=== PATIENT | male | born 1945 | race Caucasian/White ===

== ENCOUNTER 2020-02-12 11:05 | Emergency (ER) | payer MEDICARE, OTHER ==
[2020-02-12 11:28] VITALS: BP 152/86; PULSE 99
[2020-02-12 12:27] LABS: CHLORIDE,CL 99 mEq/L (98-106); SODIUM,NA 137 mEq/L (136-145)
--- NOTE | 2020-02-12 12:58 | EDM.PDOC ---
ED HPI GENERAL MEDICAL PROBLEM - General Chief Complaint: Syncope Stated Complaint: dizzy Time Seen by Provider: 02/12/20 11:25 Source of Information: Reports: Patient History Limitations: Reports: No Limitations - History of Present Illness INITIAL COMMENTS - FREE TEXT/NARRATIVE: Franklin is a 74 year old male who presents to ER with complaints of feeling lightheaded off an on since Sunday. Admits that Sunday evening, had a few alcoholic beverages and "a high sodium meal" and awoke on Sunday feeling lightheaded. Thought possibly related to high sodium intake so has been wa tching his salt intake. This am, came over to see his mom at [employer] and felt lightheaded when getting in his car and getting up from seeing her. He feels fine when at rest and with lying down. He has been monitoring his blood pressure as of late, systolic has been between 106-150. Had a visit with Dr. Holley a month ago, states tests were all stable at that time. Does have a history of diabetes. Does not check his blood sugars at home. Last A1c was 6.1 in October. Onset: Today Duration: Minutes:, Intermittent Location: Reports: Head Severity: Mild Improves with: Reports: Rest Worsens with: Reports: Movement Associated Symptoms: Denies: Confusion, Chest Pain, Cough, Fever/Chills, Loss of Appetite, Malaise, Nausea/Vomiting, Shortness of Breath, Weakness - Related Data Allergies Allergy/AdvReac Type Severity Reaction Status Date / Time No Known Allergies Allergy Verified 02/12/20 11:28 Home Meds: Home Meds Flaxseed/Omega3,6,9/Fatty Acid [Flax Seed Oil 1,300 mg Softgel] 1 cap PO DAILY 05/04/15 [History] Losartan/Hydrochlorothiazide [Losartan-HCTZ 100-25 MG] 1 tab PO DAILY 05/04/15 [History] Potassium Chloride [Klor-Con 10] 1 tab PO DAILY 05/04/15 [History] amLODIPine [Norvasc] 10 mg PO BEDTIME 02/12/20 [History] Past Medical History Cardiovascular History: Reports: Hypertension Endocrine/Metabolic History: Reports: Diabetes, Type II Social & Family History - Tobacco Use Tobacco Use Status *Q: Never Tobacco User - Caffeine Use Caffeine Use: Reports: None - Recreational Drug Use Recreational Drug Use: No ED ROS GENERAL - Review of Systems Review Of Systems: See Below Constitutional: Reports: Malaise, Weakness. Denies: Fever, Chills, Fatigue, Decreased Appetite HEENT: Denies: Ear Pain, Rhinitis, Sinus Problem, Throat Pain, Vertigo Respiratory: Denies: Shortness of Breath, Cough Cardiovascular: Reports: Lightheadedness. Denies: Chest Pain, Edema Endocrine: Reports: Fatigue GI/Abdominal: Denies: Abdominal Pain, Constipation, Diarrhea, Nausea, Vomiting : Reports: No Symptoms Musculoskeletal: Reports: No Symptoms Skin: Reports: No Symptoms Neurological: Reports: Syncope, Weakness ED EXAM, DIZZINESS - Physical Exam Exam: See Below Exam Limited By: No Limitations General Appearance: Alert, WD/WN, No Apparent Distress Eye Exam: Bilateral Eye: EOMI, PERRL Ears: Normal External Exam, Normal TMs Nose: Normal Inspection, Normal Mucosa, No Blood Throat/Mouth: Normal Inspection, Normal Oropharynx Head Exam: Normocephalic Vertigo: No: reproducible Neck: Normal Inspection, Supple, Non-Tender, Full Range of Motion Respiratory/Chest: No Respiratory Distress, Lungs Clear, Normal Breath Sounds Cardiovascular: Regular Rate, Rhythm GI/Abdominal: Normal Bowel Sounds, Soft, Non-Tender Neurological: Alert, Normal Mood/Affect, CN II-XII Intact, Oriented x 3 Extremities: Normal Inspection, No Pedal Edema Skin Exam: Warm, Dry Course - Vital Signs Last Recorded V/S: Last Vital Signs Temp 97.8 F 02/12/20 11:26 Pulse 99 02/12/20 11:26 Resp 18 02/12/20 11:26 BP 152/86 H 02/12/20 11:26 Pulse Ox 99 02/12/20 11:26 - Orders/Labs/Meds Orders: Active Orders 24 hr Category Date Time Status Chest 2V [CR] Stat Exams 02/12/20 12:03 Taken Head wo Cont [CT] Stat Exams 02/12/20 12:03 Taken Sodium Chloride 0.45% 1,000 ml Med 02/12/20 13:00 Active IV ASDIRECTED Medication Orders Sodium Chloride (Sodium Chloride 0.45%) 1,000 mls @ 250 mls/hr IV ASDIRECTED ROBBIE Last Admin: 02/12/20 13:08 Dose: 250 mls/hr Documented by: KELLY Labs: Laboratory Tests 02/12/20 02/12/2020 Range/Units 11:06 12:10 12:10 WBC 14.6 H (5.0-10.0) 10^3/uL RBC 5.18 (4.50-6.00) 10^6/uL Hgb 15.8 (14.0-18.0) g/dL Hct 47.0 (40.0-54.0) % MCV 90.7 (82.0-94.0) fL MCH 30.5 (27.0-32.0) pg MCHC 33.6 (33.0-38.0) g/dL RDW Coeff of Angelique 13.3 (11.0-15.0) % Plt Count 319 (150-400) 10^3/uL Add Manual Diff Yes Neutrophils % (Manual) 40 (35-85) % Band Neutrophils % 2 (0-5) % Lymphocytes % (Manual) 42 (21-55) % Monocytes % (Manual) 9 (2-12) % Absolute Neutrophils 6.13 (1.80-7.00) 10^3/uL Lymphocytes # (Manual) 7.15 H (1.00-4.80) 10^3/uL Monocytes # (Manual) 1.31 H (0.00-0.80) 10^3/uL D-Dimer, Quantitative (0.00-0.50) Sodium 137 (136-145) mEq/L Potassium 3.8 (3.5-5.0) mEq/L Chloride 99 (98-106) mEq/L Carbon Dioxide 32 (21-32) mmol/L BUN 20 H (7-18) mg/dL Creatinine 1.6 H (0.7-1.3) mg/dL Est Cr Clr Drug Dosing 38.00 mL/min Estimated GFR (MDRD) 42 L (>=60) mL/min Glucose 225 H (75-99) mg/dL Calcium 9.6 (8.4-10.1) mg/dL Total Bilirubin 1.2 H (0.0-1.0) mg/dL AST 48 H (15-37) U/L ALT 59 (12-78) U/L Alkaline Phosphatase 78 (46-116) U/L Troponin I < 0.017 (0.00-0.06) ng/mL C-Reactive Protein 0.2 (0.2-0.8) mg/dL NT-Pro-B Natriuret Pep 50 (0-1000) pg/mL Total Protein 7.4 (6.4-8.2) g/dL Albumin 4.0 (3.4-5.0) g/dL Urine Color (YELLOW) Urine Appearance (CLEAR) Urine pH (4.5-8.0) Ur Specific [place] (1.003-1.020) Urine Protein (NEGATIVE) mg/dL Urine Glucose (UA) (NEGATIVE) mg/dL Urine Ketones (NEGATIVE) mg/dL Urine Occult Blood (NEGATIVE) Urine Nitrite (NEGATIVE) Urine Bilirubin (NEGATIVE) Urine Urobilinogen (0.2-1.0) EU/dL Ur Leukocyte Esterase (NEGATIVE) SARS CoV-2 RNA Rapid MARCIO Negative (NEGATIVE) 02/12/20 02/12/20 Range/Units 12:10 12:10 WBC (5.0-10.0) 10^3/uL RBC (4.50-6.00) 10^6/uL Hgb (14.0-18.0) g/dL Hct (40.0-54.0) % MCV (82.0-94.0) fL MCH (27.0-32.0) pg MCHC (33.0-38.0) g/dL RDW Coeff of Angelique (11.0-15.0) % Plt Count (150-400) 10^3/uL Add Manual Diff Neutrophils % (Manual) (35-85) % Band Neutrophils % (0-5) % Lymphocytes % (Manual) (21-55) % Monocytes % (Manual) (2-12) % Absolute Neutrophils (1.80-7.00) 10^3/uL Lymphocytes # (Manual) (1.00-4.80) 10^3/uL Monocytes # (Manual) (0.00-0.80) 10^3/uL D-Dimer, Quantitative 0.19 (0.00-0.50) Sodium (136-145) mEq/L Potassium (3.5-5.0) mEq/L Chloride (98-106) mEq/L Carbon Dioxide (21-32) mmol/L BUN (7-18) mg/dL Creatinine (0.7-1.3) mg/dL Est Cr Clr Drug Dosing mL/min Estimated GFR (MDRD) (>=60) mL/min Glucose (75-99) mg/dL Calcium (8.4-10.1) mg/dL Total Bilirubin (0.0-1.0) mg/dL AST (15-37) U/L ALT (12-78) U/L Alkaline Phosphatase (46-116) U/L Troponin I (0.00-0.06) ng/mL C-Reactive Protein (0.2-0.8) mg/dL NT-Pro-B Natriuret Pep (0-1000) pg/mL Total Protein (6.4-8.2) g/dL Albumin (3.4-5.0) g/dL Urine Color Yellow (YELLOW) Urine Appearance Clear (CLEAR) Urine pH 7.0 (4.5-8.0) Ur Specific [place] 1.020 (1.003-1.020) Urine Protein Negative (NEGATIVE) mg/dL Urine Glucose (UA) Negative (NEGATIVE) mg/dL Urine Ketones Negative (NEGATIVE) mg/dL Urine Occult Blood Negative (NEGATIVE) Urine Nitrite Negative (NEGATIVE) Urine Bilirubin Negative (NEGATIVE) Urine Urobilinogen 0.2 (0.2-1.0) EU/dL Ur Leukocyte Esterase Negative (NEGATIVE) SARS CoV-2 RNA Rapid MARCIO (NEGATIVE) Meds: Medications Generic Name Dose Route Start Last Admin Trade Name Freq PRN Reason Stop Dose Admin Sodium Chloride 1,000 mls @ 250 mls/hr 02/12/20 13:00 02/12/20 13:08 Sodium Chloride 0.45% IV 250 mls/hr ASDIRECTED [facility] Administration - Re-Assessments/Exams Free Text/Narrative Re-Assessment/Exam: 02/12/20 13:01 Labs note stable WBC due to history of leukocytosis. CRP is negative. BUN/creatinine elevated in comparison to past history. Blood pressure did drop 20 points with standing. Will given IV fluids over the next few hours. Await CT scan of head. EKG normal. Patient aware and agrees with plan. 02/12/20 16:01 Patient is feeling better. Has been up and ambulating and doing well. Had a dinner meal without nausea. Discussed keeping his appointment with Dr. Holley to follow up with possibly setting up event monitor, echo and carotid ultrasound if needed. Departure - Departure Time of Disposition: 16:03 Disposition: Home, Self-Care 01 Clinical Impression: Near syncope - Discharge Information *PRESCRIPTION DRUG MONITORING PROGRAM REVIEWED*: No *COPY OF PRESCRIPTION DRUG MONITORING REPORT IN PATIENT BLAS: No Instructions: Near-Syncope, [id number] Referrals: Evaristo Holley MD [Primary Care Provider] - Forms: ED Department Discharge Additional Instructions: 1. Push fluids 2. Rest 3. Follow up with Dr. Holley as planned as may need to consider carotid ultrasound, echocardiogram or event monitor due to near syncope 4. Continue with current meds 5. Call with any questions or concerns. Sepsis Event Note (ED) - Evaluation Sepsis Screening Result: No Definite Risk - Focused Exam Vital Signs: Vital Signs Temp Pulse Resp BP Pulse Ox 02/12/20 11:26 97.8 F 99 18 152/86 H 99 - My Orders Last 24 Hours: My Active Orders 02/12/20 12:03 Chest 2V [CR] Stat Head wo Cont [CT] Stat 02/12/20 13:00 Sodium Chloride 0.45% 1,000 ml IV ASDIRECTED - Assessment/Plan Last 24 Hours: My Active Orders 02/12/20 12:03 Chest 2V [CR] Stat Head wo Cont [CT] Stat 02/12/20 13:00 Sodium Chloride 0.45% 1,000 ml IV ASDIRECTED
[2020-02-12] MEDS ORDERED: Sodium Chloride 0.45% 1,000 ML IV SCH (13:00)
== END 2020-02-12 16:00 | disposition home or self-care (01) ==
LOC: CC.ED 11:05
DX: R55 Syncope and collapse (principal); E11.9 Type 2 diabetes mellitus without complications; I10 Essential (primary) hypertension; Z79.899 Other long term (current) drug therapy; Z20.828 Contact with and (suspected) exposure to other viral communicable diseases
CPT/HCPCS: 36415; 70450; 71046; 80053; 81003; 83880; 84484; 85025; 85379; 86140; 93005; 93010; 99284; 99284-25; J7030; U0002